=== PATIENT | female | born 1935 | race Caucasian/White ===

== ENCOUNTER → 2019-11-13 | Outpatient (CLI) | payer MEDICARE | END | disposition home or self-care (01) | LOC: SHCH 13:29 | PROVIDERS: ATTEND Internal Medicine Cardiovascular Disease | DX: I08.1 Rheumatic disorders of both mitral and tricuspid valves (principal); I50.20 Unspecified systolic (congestive) heart failure | CPT/HCPCS: 93306 ==

== ENCOUNTER → 2020-11-26 | Outpatient (CLI) | payer MEDICARE ==
[~2020-11-26] MED LIST: GADOTERATE MEGLUMINE 10 MMOL/20 ML VIAL IV ONE
== END | disposition home or self-care (01) ==
LOC: RAH 11:10
PROVIDERS: ATTEND Otolaryngology Plastic Surgery within the Head & Neck
DX: H90.3 Sensorineural hearing loss, bilateral (principal); G31.9 Degenerative disease of nervous system, unspecified
CPT/HCPCS: 70553; A9575

== ENCOUNTER 2023-08-23 18:42 | Observation (INO) | payer MEDICARE ==
[~2023-08-23] VITALS: Ht 157.5 cm; Wt 54.2 kg
[~2023-08-23 18:42] MED LIST changes: +APIX2.5T PO; +FAMO20TA8 PO; +FERR-82 PO; +FURO20TA4 PO; -GADOTERATE MEGLUMINE 10 MMOL/20 ML VIAL IV ONE; +LAMO150T6 PO; +LEVO137T2 PO; +MAGN250T10 PO; +OMEG-53 PO; +POTA-79 PO; +ROSU40TA21 PO; +TRAZ150 PO
[2023-08-23] MEDS: OXYMETAZOLINE HCL SPRAY 15 ML BOTTLE EN SCH (20:00)
[2023-08-23 20:32] LABS: HEMATOCRIT 24.4 % (36-48); MEAN CORPUSCULAR HEMOGLOBIN 30.7 pg (27.0-33.0); MEAN CORPUSCULAR VOLUME 96.1 fL (79-99); RED BLOOD CELL COUNT(AUTO) 2.54 MIL/uL (4.00-5.50); WHITE BLOOD COUNT (AUTO) 5.7 K/uL (4.8-10.8)
[2023-08-23 20:40] LABS: CREATININE 2.4 mg/dL (0.5-1.0); POTASSIUM 5.3 mmol/L (3.5-5.1)
[2023-08-23 20:41] LABS: INR <= 0.93 (0.85-1.15)
[2023-08-23 20:42] LABS: PARTIAL THROMBOPLASTIN TIME 25.1 SEC (26.3-35.5)
[2023-08-23] MEDS: OXYMETAZOLINE HCL SPRAY 15 ML BOTTLE ONE (21:43)
[2023-08-23] MEDS ORDERED: MAG/ALUM/SIMETH 30 ML UDCUP PO PRN (23:00)
[2023-08-23] MEDS ORDERED: ONDANSETRON 4MG INJ IV PRN (23:00)
[2023-08-23] MEDS ORDERED: ZOLPIDEM TARTRATE 5 MG TAB PO PRN (23:00)
[2023-08-23] MEDS ORDERED: NITROGLYCERIN 0.4 MG SL TAB SL PRN (23:00)
[2023-08-23] MEDS ORDERED: LACTULOSE 20 GM/30 ML UDCUP PO PRN (23:00)
[2023-08-23] MEDS ORDERED: ACETAMINOPHEN 325 MG TAB PO PRN ×2 (23:00)
[2023-08-23] MEDS ORDERED: GUAIFENESIN-DM 200/20 MG 10 ML PO PRN (23:00)
[2023-08-23 23:30] VITALS: BP 138/50; PULSE 80; RESP 23
[2023-08-23 23:40] VITALS: O2SAT 96
[2023-08-24] MEDS: KAYEXALATE 15GM/60ML PO ONE (00:03)
[2023-08-24] MEDS: FUROSEMIDE 20MG VIAL IV SCH (00:03)
[2023-08-24] MEDS ORDERED: BUDE0.5A3 IH (01:30)
[2023-08-24] MEDS ORDERED: TORS20TA4 PO (01:30)
[2023-08-24] MEDS ORDERED: MAGN400C PO (01:30)
[2023-08-24] MEDS ORDERED: SPIR50TA5 PO (01:30)
[2023-08-24 04:00] VITALS: BP 142/61; PULSE 80; RESP 18
[2023-08-24 08:00] VITALS: BP 137/71; PULSE 79; RESP 16; O2SAT 92
[2023-08-24] MEDS: METOPROLOL TARTRATE 25 MG TAB PO SCH (09:00)
[2023-08-24] MEDS: FAMOTIDINE 20MG TAB PO SCH (10:01)
[2023-08-24] MEDS: EPOETIN ALFA-EPBX (NON-ESRD) 10,000 UNIT/ML VIAL SQ SCH (10:16)
[2023-08-24 11:47] LABS: HEMATOCRIT 21.5 % (36-48); MEAN CORPUSCULAR HEMOGLOBIN 30.8 pg (27.0-33.0); MEAN CORPUSCULAR HGB CONC 33.5 g/dL (32.0-36.0); MEAN CORPUSCULAR VOLUME 91.9 fL (79-99); RED BLOOD CELL COUNT(AUTO) 2.34 MIL/uL (4.00-5.50); RED CELL DISTRIBUTION WIDTH 14.4 % (11.0-15.5); WHITE BLOOD COUNT (AUTO) 5.4 K/uL (4.8-10.8)
[2023-08-24 11:59] LABS: CREATININE 2.1 mg/dL (0.5-1.0); POTASSIUM 3.7 mmol/L (3.5-5.1)
[2023-08-24 12:00] VITALS: BP 124/60; PULSE 80; RESP 14
[2023-08-24] MEDS: IRON SUCROSE COMPLEX 300 MG in 0.9% NACL 250ML 250 ML IV ONE (12:45)
== END 2023-08-24 16:13 | disposition home or self-care (01) ==
LOC: EDH 18:42 → EDHIP 23:24 → 3CH 23:29
PROVIDERS: ADMIT Internal Medicine; ATTEND Internal Medicine
DX: I13.0 Hypertensive heart and chronic kidney disease with heart failure and stage 1 through stage 4 chronic kidney disease, or unspecified chronic kidney disease (principal); I50.9 Heart failure, unspecified; N18.4 Chronic kidney disease, stage 4 (severe); E87.5 Hyperkalemia; R04.0 Epistaxis; D62 Acute posthemorrhagic anemia; N17.9 Acute kidney failure, unspecified; D63.8 Anemia in other chronic diseases classified elsewhere; I25.810 Atherosclerosis of coronary artery bypass graft(s) without angina pectoris; E03.9 Hypothyroidism, unspecified; Z79.899 Other long term (current) drug therapy; Z79.01 Long term (current) use of anticoagulants; Z95.1 Presence of aortocoronary bypass graft; Z88.8 Allergy status to other drugs, medicaments and biological substances; Z95.810 Presence of automatic (implantable) cardiac defibrillator; Z86.2 Personal history of diseases of the blood and blood-forming organs and certain disorders involving the immune mechanism
CPT/HCPCS: 84443; 83540; 83550; 80048 ×2; 85027 ×2; 85610; 85730; 86850; 86900; 86901; 36415 ×2; 99291; 96372; 96365; 96366; 96375; 82270; 93306; 93356; G0378 ×16; J1940 ×2; J1756; J7050; Q5106

== ENCOUNTER 2023-11-28 19:26 | Emergency (ER) | payer MEDICARE ==
[~2023-11-28] VITALS: Ht 160 cm; Wt 54.9 kg
[~2023-11-28 19:26] MED LIST changes: -APIX2.5T PO; +BUDE0.5A3 IH; -FURO20TA4 PO; -MAGN250T10 PO; +MAGN400C PO; -OMEG-53 PO; +POTA-364 PO; -POTA-79 PO; -ROSU40TA21 PO; +ROSU40TA70 PO; +SPIR50TA5 PO; +TORS20TA4 PO
[2023-11-28 19:54] LABS: BASOPHILS # (AUTO) 0.03 K/uL (0.00-0.20); BASOPHILS % (AUTO) 0.4 % (0.0-5.0); EOSINOPHILS % (AUTO) 4.2 % (0.0-8.0); HEMATOCRIT 25.7 % (36-48); IMMATURE GRANULOCYTE ABSOLUTE 0.02 K/uL (0-1); LYMPHOCYTES # (AUTO) 0.7 K/uL (1.0-4.8); LYMPHOCYTES % (AUTO) 9.4 % (21.0-51.0); MEAN CORPUSCULAR HEMOGLOBIN 28.4 pg (27.0-33.0); MEAN CORPUSCULAR HGB CONC 32.3 g/dL (32.0-36.0); MONOCYTES # (AUTO) 0.6 K/uL (0.1-1.0); MONOCYTES % (AUTO) 8.7 % (3.0-13.0); NEUTROPHILS # (AUTO) 5.5 K/uL (1.8-7.7); PLATELET COUNT (AUTO) 283 K/uL (130-400); RED BLOOD CELL COUNT(AUTO) 2.92 MIL/uL (4.00-5.50); WHITE BLOOD COUNT (AUTO) 7.1 K/uL (4.8-10.8)
[2023-11-28 20:09] LABS: INR 1.05 (0.85-1.15); PARTIAL THROMBOPLASTIN TIME 26.1 SEC (26.3-35.5); PROTHROMBIN TIME 11.1 SEC (9.6-11.6)
[2023-11-28 20:12] LABS: B-TYPE NATRIURETIC PEPTIDE 459 pg/mL (0-100)
[2023-11-28 20:14] LABS: CREATININE 2.3 mg/dL (0.5-1.0); MAGNESIUM 2.4 mg/dL (1.80-2.40)
[2023-11-28 20:18] LABS: APPEARANCE,URINE CLEAR (CLEAR); BILIRUBIN,URINE NEGATIVE (NEGATIVE); COLOR,URINE LIGHT-YELLOW (YELLOW); GLUCOSE, URINE (UA) NEGATIVE (NEGATIVE); KETONES,URINE NEGATIVE (NEGATIVE); LEUKOCYTE ESTERASE ,URINE 25 Leu/uL (NEGATIVE); NITRATE,URINE NEGATIVE (NEGATIVE); OCCULT BLOOD,URINE NEGATIVE (NEGATIVE); PROTEIN,URINE NEGATIVE (NEGATIVE); UROBILINOGEN,URINE 0.2 mg/dL (0.2-1.0)
[2023-11-28 20:20] LABS: ADD UA MICROSCOPIC YES
[2023-11-28 20:21] LABS: BACTERIA,URINE RARE /HPF (None Seen); MUCUS,URINE RARE LPF (None Seen); OTHER CASTS, URINE 2 /LPF (None Seen); RBC,URINE 0-1 /HPF (0-1); SQUAMOUS EPITHELIAL CELL,UR RARE /HPF (0-2)
[2023-11-28 20:22] LABS: POTASSIUM 5.1 mmol/L (3.5-5.1)
[2023-11-28] MEDS: FUROSEMIDE 20MG VIAL IV ONE (20:44)
[2023-11-28 21:34] VITALS: BP 141/57; PULSE 80; RESP 19; O2SAT 98
== END 2023-11-28 21:35 | disposition home or self-care (01) ==
LOC: EDH 19:26
DX: I11.0 Hypertensive heart disease with heart failure (principal); I50.9 Heart failure, unspecified; J90 Pleural effusion, not elsewhere classified; J44.89 Other specified chronic obstructive pulmonary disease; I25.10 Atherosclerotic heart disease of native coronary artery without angina pectoris; E78.00 Pure hypercholesterolemia, unspecified; Z90.710 Acquired absence of both cervix and uterus; Z90.89 Acquired absence of other organs; Z95.0 Presence of cardiac pacemaker; Z98.890 Other specified postprocedural states; Z91.041 Radiographic dye allergy status; Z79.899 Other long term (current) drug therapy; Z95.2 Presence of prosthetic heart valve
CPT/HCPCS: 99285; 96374; 71045; 80061; 82550; 83735; 84484; 80048; 83880; 85025; 85610; 85730; 81001; 36415; 93005; J1940